=== PATIENT | female | born 1945 | race Caucasian/White ===

== ENCOUNTER 2018-03-10 09:11 | Emergency (ER) | payer BC, MEDICARE ==
[~2018-03-10] VITALS: Ht 162.6 cm; Wt 84.1 kg
[~2018-03-10 09:11] MED LIST: ALTOPREV20 M1 PO; ANTIVERT12.5 M1 PO; ASPIR LOW81 MG PO; DAILY MULTIPLE1 T18 PO; LOPRESSOR 225 MG/TAB PO; OGEN 0.625MG0.625 MG PO; ONDANSETRON HYDR4 M1 PO; SYNTHROID0.075 MG/T PO
[2018-03-10 09:40] LABS: HEMATOCRIT 39.1 % (37.0-47.0); HEMOGLOBIN 12.7 g/dL (12.5-16.0); MEAN CELL VOLUME 94 fl (78-100); MEAN CORPUSCULAR HEMOGLOBIN 31 pg (27-31); MEAN CORPUSCULAR HGB CONC 33 g/dL (33-37); MEAN PLATELET VOLUME 10.1 fl (7.4-10.4); PLATELET COUNT 239 K/mm3 (130-400); RED BLOOD COUNT 4.15 M/mm3 (4.10-5.30); RED CELL DISTRIBUTION WIDTH 13.2 % (11.5-14.5); WHITE BLOOD COUNT 5.2 K/mm3 (4.8-10.8)
[2018-03-10] MEDS ORDERED: LOSARTAN POTASS25 MG PO (09:53)
[2018-03-10] MEDS ORDERED: ESTRADIOL0.5 M1 PO (09:53)
[2018-03-10] MEDS ORDERED: NAPROXEN500 MG PO (09:53)
[2018-03-10] MEDS ORDERED: OMEGA 3 1,0001 EACH PO (09:55)
[2018-03-10] MEDS ORDERED: LYSINE 500500 MG/TAB PO (09:56)
[2018-03-10] MEDS ORDERED: CALCIUM 600 MG-1 TAB PO (09:56)
[2018-03-10] MEDS ORDERED: NATURAL LUTEIN20 MG PO (09:57)
[2018-03-10] MEDS ORDERED: NATURE'S BLEND400 IU PO (09:57)
[2018-03-10 09:58] LABS: LYMPHOCYTE 38 % (20-51); MONOCYTE 5 % (3-10); NEUTROPHILS 56 % (42-75)
[2018-03-10] MEDS ORDERED: B-12500 MC1 PO (09:58)
[2018-03-10 10:02] LABS: ALBUMIN 3.7 g/dL (3.5-5.0); CALCIUM 9.2 mg/dL (8.4-10.2); POTASSIUM 4.2 mmol/L (3.6-5.0); TOTAL BILIRUBIN 0.5 mg/dL (0.2-1.3); TOTAL PROTEIN 6.5 g/dL (6.3-8.2)
[2018-03-10 10:16] LABS: URINE APPEARANCE CLEAR; URINE BILIRUBIN NEGATIVE (NEGATIVE); URINE BLOOD NEGATIVE (NEGATIVE); URINE COLOR YELLOW; URINE GLUCOSE NEGATIVE (NEGATIVE); URINE KETONE NEGATIVE (NEGATIVE); URINE LEUKOCYTE ESTERASE NEGATIVE (NEGATIVE); URINE NITRATE NEGATIVE (NEGATIVE); URINE PROTEIN(semi-quant) TRACE mg/dL (NEGATIVE); URINE UROBILINOGEN NORMAL (NORMAL)
[2018-03-10 12:21] VITALS: BP 146/62
== END 2018-03-10 12:24 | disposition home or self-care (01) ==
LOC: ED 09:11
PROVIDERS: Nurse Practitioner Primary Care
DX: M79.18 Myalgia, other site (principal); I48.91 Unspecified atrial fibrillation; Z79.82 Long term (current) use of aspirin
CPT/HCPCS: J1885; Q9967

== ENCOUNTER 2018-03-31 01:46 | Emergency (ER) | payer BC, MEDICARE ==
[~2018-03-31] VITALS: Ht 165.1 cm; Wt 83.2 kg
[~2018-03-31 01:46] MED LIST changes: +B-12500 MC1 PO; +CALCIUM 600 MG-1 TAB PO; +ESTRADIOL0.5 M1 PO; +LOSARTAN POTASS25 MG PO; +LYSINE 500500 MG/TAB PO; +NAPROXEN500 MG PO; +NATURAL LUTEIN20 MG PO; +NATURE'S BLEND400 IU PO; +OMEGA 3 1,0001 EACH PO
[2018-03-31 02:52] LABS: HEMATOCRIT 38.5 % (37.0-47.0); HEMOGLOBIN 12.6 g/dL (12.5-16.0); MEAN CELL VOLUME 94 fl (78-100); MEAN CORPUSCULAR HEMOGLOBIN 31 pg (27-31); MEAN CORPUSCULAR HGB CONC 33 g/dL (33-37); MEAN PLATELET VOLUME 10.1 fl (7.4-10.4); PLATELET COUNT 201 K/mm3 (130-400); RED BLOOD COUNT 4.09 M/mm3 (4.10-5.30); RED CELL DISTRIBUTION WIDTH 13.2 % (11.5-14.5); WHITE BLOOD COUNT 4.8 K/mm3 (4.8-10.8)
[2018-03-31 02:55] LABS: ALBUMIN 3.3 g/dL (3.5-5.0); CALCIUM 8.4 mg/dL (8.4-10.2); POTASSIUM 4.3 mmol/L (3.6-5.0); TOTAL BILIRUBIN 0.3 mg/dL (0.2-1.3)
[2018-03-31 02:58] LABS: BAND 2 % (0-10); LYMPHOCYTE 16 % (20-51); MONOCYTE 14 % (3-10); NEUTROPHILS 68 % (42-75)
[2018-03-31 02:59] LABS: URINE COLOR YELLOW
[2018-03-31 03:01] LABS: URINE APPEARANCE HAZY; URINE BILIRUBIN NEGATIVE (NEGATIVE); URINE GLUCOSE NEGATIVE (NEGATIVE); URINE KETONE NEGATIVE (NEGATIVE); URINE NITRATE NEGATIVE (NEGATIVE); URINE PROTEIN(semi-quant) NEGATIVE (NEGATIVE); URINE UROBILINOGEN NORMAL (NORMAL)
[2018-03-31 03:02] LABS: URINE BLOOD TRACE (NEGATIVE); URINE LEUKOCYTE ESTERASE NEGATIVE (NEGATIVE); URINE MUCUS PRESENT (NOT PRESENT); URINE WBC 0-1 /hpf (0-3)
[2018-03-31] MEDS ORDERED: PEPCID 20MG TAB20 MG PO (03:28)
[2018-03-31] MEDS ORDERED: ZOFRAN ODT4 MG PO (03:28)
[2018-03-31 03:34] VITALS: BP 118/64
== END 2018-03-31 03:34 | disposition home or self-care (01) ==
LOC: ED 01:46
PROVIDERS: Family Medicine
DX: K29.60 Other gastritis without bleeding (principal); I48.91 Unspecified atrial fibrillation; I10 Essential (primary) hypertension; E78.5 Hyperlipidemia, unspecified; Z79.82 Long term (current) use of aspirin; Z90.49 Acquired absence of other specified parts of digestive tract; Z90.710 Acquired absence of both cervix and uterus
CPT/HCPCS: J1885

== ENCOUNTER 2020-07-31 15:50 | Emergency (ER) | payer BC, MEDICARE ==
[~2020-07-31 15:50] MED LIST changes: +PEPCID 20MG TAB20 MG PO; +ZOFRAN ODT4 MG PO
[2020-07-31] MEDS ORDERED: LOVASTATIN20 M1 PO (16:01)
[2020-07-31] MEDS ORDERED: EUTHYROX75 MCG PO (16:03)
[2020-07-31] MEDS ORDERED: NAPROSYN500 M1 PO (16:03)
[2020-07-31] MEDS ORDERED: GOOD SENSE ASPI81 M1 PO (16:03)
[2020-07-31] MEDS ORDERED: CYCLOBENZAPRINE10 M1 PO (17:05)
[2020-07-31 18:00] VITALS: BP 146/82
== END 2020-07-31 18:00 | disposition home or self-care (01) ==
LOC: ED 15:50
DX: M54.41 Lumbago with sciatica, right side (principal); Z90.710 Acquired absence of both cervix and uterus
CPT/HCPCS: J1885; J2360

== ENCOUNTER → 2022-03-30 | Outpatient (CLI) | payer MEDICARE ==
[~2022-03-30] MED LIST changes: +CYCLOBENZAPRINE10 M1 PO; +EUTHYROX75 MCG PO; +GOOD SENSE ASPI81 M1 PO; +LOVASTATIN20 M1 PO; +NAPROSYN500 M1 PO
== END ==
LOC: RAD 08:58
DX: S63.114A Dislocation of metacarpophalangeal joint of right thumb, initial encounter (principal); S62.606A Fracture of unspecified phalanx of right little finger, initial encounter for closed fracture; W19.XXXA Unspecified fall, initial encounter